=== PATIENT | male | born 1950 | race Caucasian/White ===

== ENCOUNTER 2018-01-16 09:35 | Inpatient (IN) | payer OTHER ==
[~2018-01-16] VITALS: Ht 188 cm; Wt 153.3 kg
--- NOTE | ~2018-01-16 | 2DMMODE ---
[facility] [address] [place] [address] 2 D/M-MODE ECHOCARDIOGRAM Name: LEE ROSSI Room #: 449-I ADM IN .R.#: [id number] Admission: 01/16/18 Attend Phys: Madi Bryant MD Discharge: Date of : 52 Date of Service: 01/20/18 1113 Report #: [id number] THIS REPORT FOR: //name// APPROVED REPORT Study performed: 01/20/2018 09:39:14 EXAM: Comprehensive 2D, Doppler, and color-flow Echocardiogram Patient Location: Echo lab Room #: [facility] Status: routine BSA: 2.72 HR: 82 bpm BP: 164/80 mmHg Rhythm: NSR Other Information Study Quality: Technically Limited Indications Chest Pain Echo Enhancing Agent Indication: Endocardial border delineation Agent(s) / Amount(s) Used: Optison 3 cc 2D Dimensions LVEF(%): 54.51 (>50%) IVSd: 11.49 (7-11mm) LVOT Diam: 24.46 (18-24mm) LVDd: 54.07 mm PWd: 11.44 (7-11mm) Ascending Ao: 39.42 (22-36mm) LVDs: 38.65 (25-40mm) Aortic Root: 33.88 mm Dubois's LVEF: 54.51 % Aortic Valve AoV Peak Bayron.: 1.29 m/s AO Peak Gr.: 6.68 mmHg LVOT Max P.23 mmHg LVOT Max V: 1.14 m/s ALEXSANDRA Vmax: 4.16 cm2 Mitral Valve E/A Ratio: 1.2 MV Decel. Time: 198.54 ms MV E Max Bayron.: 1.03 m/s [facility] [address] [place] [address] 2 D/M-MODE [facility]CHOCARDIOGRAM [facility] Room #: 449I [facility] IN ..#: [id number] Admission: 01/16/18 Attend Phys: Madi Bryant MD Discharge: Date of : 52 Date of Service: 01/20/18 1113 Report #: [id number] MV A Bayron.: 0.84 m/s MV PHT: 57.58 ms IVRT: 78.43 ms Pulmonary Valve PV Peak Bayron.: 1.11 m/s PV Peak Gr.: 4.94 mmHg Pulmonary Vein P Vein S: 0.37 m/s P Vein A: 0.28 m/s P Vein D: 0.34 m/s P Vein A Dur.: 96.9 msec P Vein S/D Ratio: 1.09 Left Ventricle The left ventricle is normal size. There is normal LV segmental wall motion. There is normal left ventricular wall thickness. The left ventricular systolic function is normal. The left ventricular ejection fraction is within the normal range. LVEF is 60-65%. The left ventricular diastolic function is normal. Right Ventricle The right ventricle is normal size. The right ventricular systolic function is normal. Atria The left atrium size is normal. The right atrium size is normal. Aortic Valve The aortic valve is normal in structure. No aortic regurgitation is present. There is no aortic valvular stenosis. Mitral Valve The mitral valve is normal in structure. Trace mitral regurgitation. No evidence of mitral valve stenosis. Tricuspid Valve The tricuspid valve is normal in structure. There is no tricuspid valve regurgitation noted. Pulmonic Valve The pulmonary valve is normal in structure. There is no pulmonic valvular regurgitation. Great Vessels The aortic root is normal in size. IVC is not well visualized. [address] [address] 2 D/M-MODE ECHOCARDIOGRAM Name: LEE ROSSI [facility] Room #: 449-I [facility] IN .R.#: [id number] Admission: 01/16/18 Attend Phys: Madi Bryant MD Discharge: Date of : 52 Date of Service: 01/20/18 1113 Report #: [id number] Pericardium There is no pericardial effusion. <Conclusion> Technically difficult study 1. Normal echocardiogram with Doppler. EF 60% 2. Pulmonary artery pressure could not be ascertained 3. No pericardial effusion <ELECTRONICALLY SIGNED> By: Philippe Law MD, [facility] 01/20/18 1113 1113 1113 Philippe Law MD, [facility] /INF
--- NOTE | ~2018-01-16 | P ---
[facility] [place] [address] PROCEDURE REPORT Name: LEE ROSSI Room #: 449-I [facility] IN M.R.#: [id number] Admission: 01/16/18 Attend Phys: Madi Bryant MD Discharge: 01/21/18 Date of : 52 Report #: [id number] THIS REPORT FOR: //name// CC: Madi Morse DATE OF SERVICE: 01/17/2018 PROCEDURE PERFORMED: Upper endoscopy with polypectomy and bleeding control. HISTORY OF PRESENT ILLNESS: The patient is a 67-year-old male with abdominal pain, was diagnosed with acute pancreatitis. His lipase is now improved, but he continues to have significant midepigastric abdominal pain. He does take Aleve on a regular basis. Plan is for EGD to rule out peptic ulcer disease or other abnormalities. DESCRIPTION OF PROCEDURE: The risks and benefits of the procedure were explained to the patient, those risks including but not limited to bleeding, perforation, the risk of sedation. He understood these risks and gave informed consent. Sedation was given using propofol per anesthesia. Next, using a standard Olympus upper endoscope, the scope was placed in the patient's mouth and advanced under direct vision through the esophagus, stomach and into the second portion of the duodenum. The upper and mid part of the esophagus were normal. In the distal esophagus, there was grade A erosive esophagitis. No evidence of bleeding. There were 2 polyps noted in the stomach, both of which were semi-pedunculated. The first I removed was in the mid body of the stomach. It was approximately 1 cm in size. After the polypectomy was performed by snare cautery, there was active bleeding. This was treated with epinephrine, 3 Endoclips and cautery. Eventually did stop bleeding. The second polyp was noted in the high cardia near the GE junction. Because of the location, I did not want to remove this by snare cautery today, instead would recommend have Dr. Reyna remove at the time of an endoscopic ultrasound; however, I did take biopsies of the polyp. The remaining stomach was normal. The pylorus was normal and patent. The duodenal bulb, first and second portion were all normal. The scope was then withdrawn and the procedure terminated. The patient tolerated the procedure well. IMPRESSION: 1. Two gastric polyps as described above. 2. Grade A erosive esophagitis. 3. Otherwise, normal upper endoscopy. RECOMMENDATIONS: 1. Await biopsy results. 2. Would recommend daily PPI therapy. [address] [address] PROCEDURE REPORT Name: FLOLEE Room #: 449-I [facility] IN [facility].#: [id number] Admission: 01/16/18 Attend Phys: Madi Bryant MD Discharge: 01/21/18 Date of : 52 Report #: [id number] 3. We will start the patient on clear liquids today. Thank you for allowing me to participate in his care. <ELECTRONICALLY SIGNED> By: Drake Davis MD 01/22/18 0845 1446 1918 Drake Davis MD /nt
--- NOTE | ~2018-01-16 | PATH ---
[facility] [place] [address] PATHOLOGY RPT PROCEDURE Name: LEE FAYE Room #: 449-I [facility] IN M.R.#: [id number] Admission: 01/16/18 Date of : 52 Discharge: 01/21/18 Report #: [id number] Path Case #: [id number] [facility] Accession Number: [id number] . 01 Material submitted: . PART A: GASTRIC POLYP PART B: GASTRIC CARDIA BIOPSY . 01 Clinical history: . Pre-Op DX: Abdominal pain Post-Op DX: Gastric polyp, esophagus . 02 Diagnosis: A. Polyp, gastric polyp, endoscopic biopsy: - Inflamed and ulcerated hyperplastic polyp. - Negative for dysplasia. - Inked margin showing unremarkable mucosa. . B. Gastric mucosa, gastric cardia, endoscopic biopsy: - Fragment comprised of ulceration and granulation tissue. - Negative for Helicobacter pylori (properly controlled immunohistochemical stain performed). . (IUV:mmnico; 01/20/18) [facility]/01/20/2018 . 02 Electronically signed: . Nyla Navarro MD, Pathologist NPI- [id number] . 01 Gross description: . A. Received in formalin labeled "Lee Faye, gastric polyp," is a 1.5 x 0.8 x 0.7 cm polypoid piece of mark soft tissue. The margin is inked and the specimen is sectioned perpendicular to the margin and entirely submitted in cassette A1. . B. Received in formalin labeled "Lee Faye, gastric cardia BX," is a single segment of mark soft tissue measuring 0.4 cm in maximum dimension. The specimen is entirely submitted in cassette B1. (TSD; 01/17/2018) TOB/TOB . 02 Pathologist provided ICD-10: K31.7, K25.9 . 02 CPT . 728764, 830844, L48192 [place] [address] PATHOLOGY RPT PROCEDURE Name: LEE FAYE Room #: 449-I [facility] IN .R.#: [id number] Admission: 01/16/18 Date of : 52 Discharge: 01/21/18 Report #: [id number] Path Case #: [id number] Performed at: 01 [facility] [place] [address] [facility] [address], [place], [place] [id number] MD Dawson Stock MD Phone: [phone] Performed at: [address] [id number] MD Nyla aNvarro MD Phone: [phone]
--- NOTE | ~2018-01-16 | EKG ---
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: JORGE A BOWEN : 1950 Requested By: Lety Barron Order Number: [id number] MD: Sahil [place] Measurements Intervals [place] Rate: 112 P: 58 TX: 179 QRS: 14 QRSD: 89 T: 33 QT: 316 QTc: 432 Interpretive Statements Sinus tachycardia Nonspecific T-wave abnormalities Compared to ECG 01/16/2018 09:41:48 Q waves now present Sinus rhythm no longer present Atrial premature complex(es) no longer present Electronically Signed On 01-18-2018 10:15:38 CDT by Sahil Bolivar [email or web address] <ELECTRONICALLY SIGNED> By: Sahil [place]iv[place] MD 01/18/18 1015 0250 9 Sahil Bolivar MD /MALIA
--- NOTE | ~2018-01-16 | EKG ---
[address] [employer] [place] [address] ELECTROCARDIOGRAM REPORT Name: LEE ROSSI Room #: 449-I ADM IN M.R.#: [id number] Admission: 01/16/18 Attend Phys: Madi Bryant MD Discharge: Date of : 52 Report #: [id number] THIS REPORT FOR: //name// [facility] Test Date: 2018-01-18 Test Time: 16:04:00 Pat Name: LEE ROSSI Department: Room: [facility] Gender: M Computer Network Support Specialist: RONNIE : 1950 Requested By: Madi Bryant Order Number: [id number] MD: Sahil [place] Measurements Intervals [place] Rate: 96 P: 62 IA: 162 QRS: 13 QRSD: 94 T: -30 QT: 358 QTc: 453 Interpretive Statements Sinus rhythm Borderline T abnormalities, inferior leads Compared to ECG 01/18/2018 02:50:23 T-wave abnormality now present Sinus tachycardia no longer present Electronically Signed On 01-19-2018 11:04:34 CDT by Sahil Bolivar [email or web address] <ELECTRONICALLY SIGNED> By: Sahil Boliv[place] MD 01/19/18 1104 1604 1604 Sahil Bolivar MD /MALIA
--- NOTE | ~2018-01-16 | HC ---
[facility] [place] [address] CONSULTATION Name: LEE ROSSI Room #: 449-I ADM IN .R.#: [id number] Admission: 01/16/18 Attend Phys: Madi Bryant MD Discharge: Date of : 52 Report #: [id number] THIS REPORT FOR: //name// CC: Madi Morse DATE OF SERVICE: 01/19/2018 INDICATION: Chest/abdominal pain. HISTORY OF PRESENT ILLNESS: This is a 67-year-old gentleman who was admitted several days ago with mid epigastric pain, radiating straight to the back area. The initial impression was pancreatitis, although there is no history of alcohol abuse. MRCP was negative. He did undergo an endoscopy, found to have gastric polyps. One of the polyps was removed and epinephrine was injected. Apparently, he had a severe reaction to epinephrine, resulting in severe abdominal pain and tachycardia. We are asked to evaluate the patient regarding underlying ischemic heart disease. There is no history of diabetes mellitus or hypertension. He does not smoke. He reports no episodes of chest pains or abdominal pain with exertion at home. He does have dyspnea on exertion, probably related to his weight. There is no history of PND, orthopnea, fever or diarrhea. PAST MEDICAL HISTORY: Denies diabetes, denies hypertension. ALLERGIES: None. MEDICATIONS: At home include aspirin once a day. SOCIAL HISTORY: Denies tobacco use. FAMILY HISTORY: Negative for premature CAD. REVIEW OF SYSTEMS: A full 10-point review of systems performed. Only the pertinent positives and negatives are described in the HPI. PHYSICAL EXAMINATION: VITAL SIGNS: Blood pressure is 134/76, heart rate 78 beats per minute. GENERAL APPEARANCE: An overweight male in no acute distress. HEENT: Normocephalic. Sclerae are anicteric. ENT: Oral mucosa moist. NECK: Supple. LUNGS: Clear to auscultation. CARDIAC: Regular rate and rhythm, S1, S2 positive. ABDOMEN: Soft, nontender. EXTREMITIES: No cyanosis, trace edema. [facility] [address] [address] CONSULTATION Name: LEE ROSSI Room #: [address] [place] [address] IN ..#: [id number] Admission: 01/16/18 Attend Phys: Madi Bryant MD Discharge: Date of : 52 Report #: [id number] NEUROLOGIC: Alert and oriented x 3 ECG reveals sinus rhythm, nonspecific ST segment abnormality. LABORATORY VALUES: Serial troponin levels are negative. ASSESSMENT AND PLAN: 1. Chest/epigastric pain, occurred in the setting of epinephrine injection undergoing an endoscopy. Probably a reaction to epinephrine. He does have risk factors and agree with undergoing an ischemic evaluation. 2. Abdominal pain, this is still persistent, I do not believe this is related to a cardiac etiology. It has improved, since his initial presentation several days ago. 3. Borderline hypertension, may be related to his abdominal pain. Continue to follow for now. 4. Edema, only trace amounts. Recommend a low-salt diet. <ELECTRONICALLY SIGNED> By: Sahil Bolivar MD 01/20/1805 08 2107 Sahil Bolivar MD /nt
--- NOTE | ~2018-01-16 | EKG ---
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: [facility] : 1950 Requested By: Svetlana Mclean Order Number: [id number] MD: Philippe Law Measurements Intervals [place] Rate: 92 P: 37 IN: 180 QRS: -3 QRSD: 91 T: 39 QT: 350 QTc: 433 Interpretive Statements Sinus rhythm Atrial premature complexes Compared to ECG 12/14/2013 03:31:01 Atrial premature complex(es) now present Electronically Signed On 01-17-2018 8:10:56 CDT by Philippe Law [email or web address] <ELECTRONICALLY SIGNED> By: Philippe Law MD, [facility] 08/09/01 809 0 0 Philippe Law MD, [facility] /EPI
[2018-01-16 09:35] VITALS: BP 182/97
[~2018-01-16 09:35] MED LIST: ASA81BEC PO; BACTRIM DS TAB1 EACH PO; COLACE100 MG PO; PERCOCET 7.5-31 EACH PO
[2018-01-16] MEDS ORDERED: CENTRUM SILVER1 EAC2 PO (09:48)
[2018-01-16 09:58] LABS: HEMATOCRIT 44.7 % (42.0-52.0); HEMOGLOBIN 15.3 gm/dL (14.0-18.0); MCH 30.2 pg (26.0-34.0); MCHC 34.1 g/dL (28.0-37.0); MCV 88.5 fL (80.0-100.0); RBC 5.05 mil/uL (4.50-6.00); RDW 13.5 % (10.5-14.5); WBC 12.3 thou/uL (4.0-11.0)
[2018-01-16 10:08] LABS: ANION GAP 6 mmol/L (7-16); BUN 14 mg/dL (7-18); CHLORIDE 100 mmol/L (98-107); CO2 28 mmol/L (21-32); GLUCOSE 110 mg/dL (74-106); POTASSIUM 4.4 mmol/L (3.5-5.1); SODIUM 134 mmol/L (136-145)
[2018-01-16 10:17] LABS: LIPASE 1244 U/L (73-393); SGOT 40 U/L (15-37); SGPT 53 U/L (30-65); TOTAL BILIRUBIN 0.7 mg/dL (<0.1-1.0); TOTAL PROTEIN 7.4 g/dL (6.4-8.2); TROPONIN-I <0.06 ng/mL (<0.06)
[2018-01-16 12:25] VITALS: BP 160/90
[2018-01-16 12:49] VITALS: BP 168/87
[2018-01-16 13:35] VITALS: BP 161/97
[2018-01-16 18:57] VITALS: BP 160/90
[2018-01-17 03:32] VITALS: BP 148/81
[2018-01-17 06:03] LABS: HEMATOCRIT 42.5 % (42.0-52.0); HEMOGLOBIN 14.4 gm/dL (14.0-18.0); MCH 30.3 pg (26.0-34.0); MCHC 33.9 g/dL (28.0-37.0); MCV 89.5 fL (80.0-100.0); RBC 4.75 mil/uL (4.50-6.00); RDW 13.9 % (10.5-14.5); WBC 13.3 thou/uL (4.0-11.0)
[2018-01-17 06:19] LABS: CHOLESTEROL 135 mg/dL (<200); HDL CHOLESTEROL 39 mg/dL (>40); LDL CHOLESTEROL 79 mg/dL (<100); LIPASE 454 U/L (73-393); TC:HDL 3.5 Ratio (Not establshd); TRIGLYCERIDE 88 mg/dL (<150); VLDL 18 mg/dL (<40)
[2018-01-17 06:23] LABS: ALBUMIN 3.6 g/dL (3.4-5.0); CALCIUM 8.4 mg/dL (8.5-10.1); CREATININE 0.9 mg/dL (0.7-1.3); DIRECT BILIRUBIN 0.2 mg/dL (<0.1-0.3); TOTAL BILIRUBIN 0.9 mg/dL (<0.1-1.0); TOTAL PROTEIN 7.1 g/dL (6.4-8.2)
[2018-01-17 06:29] LABS: SERUM ASSESSMENT Clear
[2018-01-17 08:59] VITALS: BP 140/85
[2018-01-17 18:08] VITALS: BP 153/80
[2018-01-17 19:26] VITALS: BP 152/81
[2018-01-18 04:45] VITALS: BP 158/79
[2018-01-18 05:21] LABS: HEMATOCRIT 40.1 % (42.0-52.0); HEMOGLOBIN 13.6 gm/dL (14.0-18.0); MCH 30.2 pg (26.0-34.0); MCHC 33.9 g/dL (28.0-37.0); MCV 89.1 fL (80.0-100.0); RBC 4.5 mil/uL (4.50-6.00); RDW 13.8 % (10.5-14.5); WBC 16.2 thou/uL (4.0-11.0)
[2018-01-18 06:23] LABS: URINE BLOOD NEGATIVE (Negative); URINE CLARITY CLEAR; URINE GLUCOSE-RANDOM* NEGATIVE (Negative); URINE KETONES 1+ (Negative); URINE LEUKOCYTES-REFLEX NEGATIVE (Negative); URINE NITRITE-REFLEX NEGATIVE (Negative); URINE PROTEIN (DIPSTICK) TRACE (Negative); URINE SPECIFIC GRAVITY >= 1.030 (1.005-1.035); URINE UROBILINOGEN 0.2 E.U./dl (0.2-1.0)
[2018-01-18 06:27] LABS: URINE COLOR DK YELLOW
[2018-01-18 06:28] LABS: ICTOTEST (BILI CONFIRMATORY) Negative (Negative); URINE BILIRUBIN NEGATIVE (Negative)
[2018-01-18 07:28] VITALS: BP 118/72
[2018-01-18 17:00] VITALS: BP 135/59
[2018-01-18 19:16] VITALS: BP 130/64
[2018-01-19 04:27] VITALS: BP 152/72
[2018-01-19 07:32] VITALS: BP 134/76
[2018-01-19 17:55] VITALS: BP 148/77
[2018-01-19 19:13] VITALS: BP 148/71
[2018-01-20 03:41] VITALS: BP 151/75
[2018-01-20 07:15] VITALS: BP 164/80
[2018-01-20 16:15] VITALS: BP 165/82
[2018-01-20 19:00] VITALS: BP 166/80
[2018-01-21 04:32] VITALS: BP 163/87
[2018-01-21 07:16] VITALS: BP 162/96
[2018-01-21] MEDS ORDERED: PROTONIX40 M1 PO (11:29)
[2018-01-21 11:42] VITALS: BP 162/96
[2018-01-21] MEDS ORDERED: NORCO 5-325 TA1 EACH PO (12:10)
[2018-01-21 20:06] LABS: IgG 530 mg/dL (700-1600)
== END 2018-01-21 12:50 | disposition home or self-care (01) | DRG 439 ==
LOC: ER 09:35 → 4W 12:27 → EROBS 12:27 → 4W 13:13
PROVIDERS: Hospitalist; Nurse Practitioner; Nurse Practitioner Acute Care; Specialist; Student in an Organized Health Care Education/Training Program
PROC: 0DB68ZX Excision of Stomach, Via Natural or Artificial Opening Endoscopic, Diagnostic (ICD-10-PCS; principal; 2018-01-17)
PROC: 0DB68ZZ Excision of Stomach, Via Natural or Artificial Opening Endoscopic (ICD-10-PCS; principal; 2018-01-17)
PROC: 3E0G8GC Introduction of Other Therapeutic Substance into Upper GI, Via Natural or Artificial Opening Endoscopic (ICD-10-PCS; principal; 2018-01-17)
PROC: 0W3P8ZZ Control Bleeding in Gastrointestinal Tract, Via Natural or Artificial Opening Endoscopic (ICD-10-PCS; principal; 2018-01-17)
DX: K85.90 Acute pancreatitis without necrosis or infection, unspecified (principal); K22.10 Ulcer of esophagus without bleeding; Z68.41 Body mass index [BMI] 40.0-44.9, adult; Z96.652 Presence of left artificial knee joint; F17.210 Nicotine dependence, cigarettes, uncomplicated; E66.9 Obesity, unspecified; K31.7 Polyp of stomach and duodenum; K57.90 Diverticulosis of intestine, part unspecified, without perforation or abscess without bleeding; D72.829 Elevated white blood cell count, unspecified; K76.0 Fatty (change of) liver, not elsewhere classified; I10 Essential (primary) hypertension; Z90.49 Acquired absence of other specified parts of digestive tract; Z79.899 Other long term (current) drug therapy; Z79.82 Long term (current) use of aspirin; K80.50 Calculus of bile duct without cholangitis or cholecystitis without obstruction
CPT/HCPCS: 10040; 62110; 62900; 70005

== ENCOUNTER 2021-01-31 22:00 | Inpatient (IN) | payer OTHER ==
[~2021-01-31] VITALS: Ht 188 cm; Wt 136.1 kg
[~2021-01-31 22:00] MED LIST changes: +CENTRUM SILVER1 EAC2 PO; +NORCO 5-325 TA1 EACH PO; +PROTONIX40 M1 PO
[2021-01-31 22:06] VITALS: BP 143/63
[2021-01-31 23:16] LABS: ABSOLUTE NEUTROPHILS 8.2 thou/uL (1.4-8.2); BASOPHILS 0.2 % (0.0-2.0); EOSINOPHILS 4.5 % (0.0-3.0); HEMATOCRIT 39.1 % (42.0-52.0); HEMOGLOBIN 13.1 gm/dL (14.0-18.0); LYMPHOCYTES 6.8 % (24.0-44.0); MCH 29.5 pg (26.0-34.0); MCHC 33.4 g/dL (28.0-37.0); MCV 88.1 fL (80.0-100.0); MONOCYTES 13.5 % (1.0-8.0); PLATELET COUNT 335 thou/uL (150-400); RBC 4.44 mil/uL (4.50-6.00); RDW 13.8 % (10.5-14.5); WBC 10.9 thou/uL (4.0-11.0)
[2021-01-31 23:32] LABS: ANION GAP 9 mmol/L (7-16); BUN 13 mg/dL (7-18); CHLORIDE 99 mmol/L (98-107); CO2 28 mmol/L (21-32); GLUCOSE 126 mg/dL (74-106); POTASSIUM 3.4 mmol/L (3.5-5.1); SODIUM 136 mmol/L (136-145)
[2021-01-31 23:42] LABS: ALBUMIN 2.4 g/dL (3.4-5.0); SGOT 26 U/L (15-37); SGPT 33 U/L (30-65); TOTAL BILIRUBIN 0.5 mg/dL (0.2-1.0); TOTAL PROTEIN 7.1 g/dL (6.4-8.2); TROPONIN-I <0.06 ng/mL (<0.06)
[2021-02-01 03:42] VITALS: BP 160/89; BP 191/122
[2021-02-01] MEDS ORDERED: LISINOPRIL-HCT1 EACH PO (03:46)
--- NOTE | 2021-02-01 07:48 | EKG ---
[address] [address] ELECTROCARDIOGRAM REPORT Name: LEE ROSSI Room #: 170-7 ADM IN M.R.#: [id number] Admission: 01/31/21 Attend Phys: Madi Bryant MD Discharge: Date of : 52 Report #: [id number] [facility] ED Test Date: 2021-02-01 Test Time: 06:05:41 Pat Name: LEE ROSSI Department: Room: 170 7 Gender: M Criminal Justice Faculty: maurice morrison : 1950 Requested By: Parul Osullivan Order Number: [id number] MD: Rito Hernandez Measurements Intervals [place] Rate: 120 P: AL: QRS: 12 QRSD: 89 T: 88 QT: 327 QTc: 462 Interpretive Statements Atrial fibrillation Borderline repolarization abnormality Baseline wander in lead(s) III,aVL,V5,V6 Compared to ECG 01/31/2021 22:35:02 Sinus tachycardia no longer present Atrial premature complex(es) no longer present Electronically Signed On 02-01-2021 7:48:41 CDT by Rito Hernandez [email or web address] <ELECTRONICALLY SIGNED> By: Rito Hernandez MD, FAC 02/01/21 0748 Rito Hernandez MD, [facility] /EPI
--- NOTE | 2021-02-01 07:48 | EKG ---
[address] [place] [employer] [place] [address] ELECTROCARDIOGRAM REPORT Name: LEE ROSSI Room #: 170-7 ADM IN M.R.#: [id number] Admission: 01/31/21 Attend Phys: Madi Bryant MD Discharge: Date of : 52 Report #: [id number] [facility] ED Test Date: 2021-01-31 Test Time: 22:35:02 Pat Name: LEE ROSSI Department: Room: 170 Gender: M Community Marketing Coordinator: maurice morrison : 1950 Requested By: Blu Guerrero Order Number: [id number] MD: Rito Hernandez Measurements Intervals [place] Rate: 107 P: 50 RI: 174 QRS: 4 QRSD: 91 T: 68 QT: 359 QTc: 479 Interpretive Statements Sinus tachycardia Atrial premature complex Abnormal R-wave progression, late transition Borderline prolonged QT interval Compared to ECG 01/18/2018 16:04:00 Atrial premature complex(es) now present Sinus rhythm no longer present T-wave abnormality no longer present Electronically Signed On 02-01-2021 7:48:32 CDT by Rito Hernandez [email or web address] <ELECTRONICALLY SIGNED> By: Rito Hernandez MD, FAC 02/01/21 0748 Rito Hernandez MD, [facility] /EPI
--- NOTE | 2021-02-01 16:16 | 2DMMODE ---
[facility] [place] [address] 2 D/M-MODE ECHOCARDIOGRAM Name: LEE ROSSI Room #: 170-7 ADM IN M.R.#: [id number] Admission: 01/31/21 Attend Phys: Kristen Chowdary MD Discharge: Date of : 52 Report #: [id number] THIS REPORT FOR: cc: Blu Morse David J. DO Park, Jin S. MD ~ APPROVED REPORT Study performed: 02/01/2021 14:59:03 EXAM: Comprehensive 2D, Doppler, and color-flow Echocardiogram Patient Location: ER/OBS Room #: 3 Status: routine BSA: 2.11 HR: 75 bpm BP: 131/75 mmHg Rhythm: NSR Other Information Study Quality: Good Risk Factors: Cardiac Risk Factors: SOB Indications Dyspnea Elevated BNP 2D Dimensions IVSd: 12.72 (7-11mm) LVOT Diam: 21.24 (18-24mm) LVDd: 33.92 mm PWd: 15.34 (7-11mm) Ascending Ao: 32.34 (22-36mm) LVDs: 21.66 (25-40mm) Left Atrium: 21.17 (27-40mm) Aortic Root: 34.79 mm Volumes Left Atrial Volume (Systole) Single Plane 4CH: 10.02 mL Single Plane 2CH: 17.07 mL Biplane LA Volume: 17.00 mL LA ESV Index: 7.00 mL/m2 Aortic Valve AoV Peak Bayron.: 1.34 m/s [facility] [place] [address] 2 D/M-MODE ECHOCARDIOGRAM Name: LEE ROSSI Room #: 1707 ADM IN M.R.#: [id number] Admission: 01/31/21 Attend Phys: Kristen Chowdary MD Discharge: Date of : 52 Report #: [id number] AO Peak Gr.: 7.18 mmHg LVOT Max P.15 mmHg LVOT Max V: 1.02 m/s ALEXSANDRA Vmax: 2.69 cm2 Mitral Valve E/A Ratio: 0.6 MV Decel. Time: 279.83 ms MV E Max Bayron.: 0.47 m/s MV A Bayron.: 0.76 m/s MV PHT: 81.15 ms Pulmonary Valve PV Peak Bayron.: 0.63 m/s PV Peak Gr.: 1.58 mmHg Pulmonary Vein P Vein S: 0.49 m/s P Vein A: 0.24 m/s P Vein D: 0.22 m/s P Vein A Dur.: 138.4 msec P Vein S/D Ratio: 2.23 Tricuspid Valve TR Peak Bayron.: 4.38 m/s RAP Estimate: 7.00 mmHg TR Peak Gr.: 76.72 mmHg RVSP: 83.00 mmHg Left Ventricle The left ventricle is normal size. There is normal LV segmental wall motion. Mild concentric left ventricular hypertrophy. Left ventricular systolic function is normal. The left ventricular ejection fraction is within the normal range. LVEF is 55-60%. Transmitral Doppler flow pattern suggests impaired LV relaxation. Right Ventricle The right ventricle is normal size. The right ventricular systolic function is normal. Atria The left atrium size is normal. The right atrium size is normal. Aortic Valve The aortic valve is normal in structure. No aortic regurgitation is present. There is no aortic valvular stenosis. Mitral Valve The mitral valve is normal in structure. Mild mitral regurgitation. No evidence of mitral valve stenosis. [facility] [address] [address] 2 D/M-MODE ECHOCARDIOGRAM Name: LEE ROSSI Room #: 170-7 ADM IN .R.#: [id number] Admission: 01/31/21 Attend Phys: Kristen Chowdary MD Discharge: Date of : 52 Report #: [id number] Tricuspid Valve The tricuspid valve is normal in structure. Mild to moderate tricuspid regurgitation PAP - 70-75 mmHg. Pulmonic Valve The pulmonary valve is normal in structure. There is no pulmonic valvular regurgitation. Great Vessels The aortic root is normal in size. IVC is normal in size and collapses >50% with inspiration. Pericardium There is no pericardial effusion. There is no pleural effusion. <Conclusion> The left ventricle is normal size. Mild concentric left ventricular hypertrophy. Left ventricular systolic function is normal. Transmitral Doppler flow pattern suggests impaired LV relaxation. The right ventricle is normal size. The left atrium size is normal. The aortic valve is normal in structure. Mild mitral regurgitation. Mild to moderate tricuspid regurgitation PAP - 70-75 mmHg. <ELECTRONICALLY SIGNED> By: Sahil Bolivar MD 02/01/21 1615 1615 1615 Sahil Bolivar MD /INF
[2021-02-01 20:00] VITALS: BP 128/80
[2021-02-02 03:14] LABS: HEMATOCRIT 39.8 % (42.0-52.0); HEMOGLOBIN 13.2 gm/dL (14.0-18.0); MCH 29.7 pg (26.0-34.0); MCHC 33.1 g/dL (28.0-37.0); MCV 89.9 fL (80.0-100.0); RBC 4.42 mil/uL (4.50-6.00); RDW 13.8 % (10.5-14.5); WBC 13.5 thou/uL (4.0-11.0)
[2021-02-02 03:31] LABS: ALBUMIN 2.3 g/dL (3.4-5.0); ANION GAP 14 mmol/L (7-16); BUN 22 mg/dL (7-18); CALCIUM 8.1 mg/dL (8.5-10.1); CHLORIDE 100 mmol/L (98-107); CO2 26 mmol/L (21-32); DIRECT BILIRUBIN < 0.1 mg/dL (<0.1-0.2); GLUCOSE 180 mg/dL (74-106); PHOSPHORUS 2.7 mg/dL (2.6-4.7); POTASSIUM 4.1 mmol/L (3.5-5.1); SGOT 28 U/L (15-37); SGPT 31 U/L (16-63); SODIUM 140 mmol/L (136-145); TOTAL BILIRUBIN 0.2 mg/dL (0.2-1.0); TOTAL PROTEIN 6.2 g/dL (6.4-8.2)
[2021-02-02 06:00] VITALS: BP 123/78
[2021-02-02 07:45] VITALS: BP 123/78
[2021-02-02 08:12] VITALS: BP 126/86
[2021-02-02 09:57] LABS: CHOLESTEROL 157 mg/dL (<200); HDL CHOLESTEROL 29 mg/dL (>40); LDL CHOLESTEROL 104 mg/dL (<100); TC:HDL 5.4 Ratio (Not establshd); TRIGLYCERIDE 120 mg/dL (<150); VLDL 24 mg/dL (<40)
--- NOTE | 2021-02-02 10:34 | HC ---
[facility] [place] [address] CONSULTATION Name: LEE ROSSI Room #: 352- ADM IN M.R.#: [id number] Admission: 01/31/21 Attend Phys: Kristen Chowdary MD Discharge: Date of : 52 Report #: [id number] THIS REPORT FOR: cc: Blu Morse David J. DO Barry, Joseph W. MD ~ DATE OF SERVICE: 02/01/2021 INFECTIOUS DISEASE CONSULTATION ATTENDING PHYSICIAN: Dr. Chowdary. REASON FOR EVALUATION: COVID-19 infection, complicated by pneumonitis and respiratory failure. HISTORY OF PRESENT ILLNESS: Chart reviewed and the patient examined. This is a 70-year-old gentleman without significant medical history of a chronic nature, who apparently has been ill for roughly 2 weeks. He noted more severe illness over the last 48-72 hours, had progressive dyspnea, cough that has been productive, unclear if he has had any fevers. He noted he is generally feeling better at this point, presumably secondary to receiving oxygen therapy and perhaps hydration. His initial chest x-ray showed bilateral interstitial issues. Coronavirus-19 ____ now is negative; however, the PCR was positive. He notes his spouse has been diagnosed as well. Lactic acid was 1.4. Blood cultures sterile thus far. Echo was otherwise unremarkable with exception of elevated pulmonary arterial pressures. He was found to be febrile on this admission. Otherwise, relatively hemodynamically stable. He is empirically started on therapy with ceftriaxone, azithromycin, methylprednisolone, remdesivir, ivermectin and vitamins. ALLERGIES: Listed to EPINEPHRINE. CURRENT MEDICATIONS: Include zinc, cholecalciferol, thiamine, ceftriaxone, azithromycin, enoxaparin, ascorbic acid, ipratropium, albuterol inhaler, methylprednisolone, famotidine, budesonide, guaifenesin, ondansetron, remdesivir, ivermectin. PAST MEDICAL HISTORY: History of pancreatitis, knee replacement, history of appendectomy, cholecystectomy, cataract surgery, vein stripping. SOCIAL HISTORY: Former smoker, occasional ethanol, no illicit drug use. FAMILY HISTORY: Noncontributory. REVIEW OF SYSTEMS: Otherwise, unremarkable. [facility] [address] [place] [address] CONSULTATION Name: LEE ROSSI Room #: 352-P [facility] IN M.R.#: [id number] Admission: 01/31/21 Attend Phys: Kristen Chowdary MD Discharge: Date of : 52 Report #: [id number] PHYSICAL EXAMINATION: GENERAL: He is a quite alert, animated, some [id number] distress. He is apparently sufficiently nourished. He is lucid. VITAL SIGNS: T-max 102.1, pulse 93, respirations 24, blood pressure 147/80. SKIN: Warm, dry, no rashes. HEENT: Normocephalic. Extraocular muscles intact. Has high-flow oxygen per nasal cannula in place. NECK: Supple. LUNGS: Bilateral scattered coarse breath sounds. HEART: Borderline tachycardic, regular. I do not appreciate a murmur. ABDOMEN: Soft and is distended, is nontender. No peritoneal signs. GENITOURINARY AND RECTAL: Deferred. LABORATORY DATA: Lactic acid 1.4. Electrolytes: Sodium 136, potassium 3.4, chloride 99, bicarbonate 28, anion gap of 9. BUN and creatinine 13 and 1.0. Glucose of 126. AST of 26, ALT of 33. Albumin 2.4, total protein 7.1. Estimated GFR of 74. CBC: White count of 10.9, H and H 13.1 and 39.1, platelets of 335. ASSESSMENT AND PLAN: Coronavirus infection, complicated by pneumonitis, respiratory failure. He is quite tenuous at this point. He has been given a combination therapy directed against coronavirus, which is reasonable. I talked to the pharmacy. Add Actemra as well. In addition to that, we will treat empirically, received ceftriaxone and azithromycin. We will try to collect sputum sample with additional diagnostic testing. He remains tenuous. Continue to monitor expectantly. May need increasing support. <ELECTRONICALLY SIGNED> By: Graeme Qureshi MD 02/02/21 [id number] Graeme Qureshi MD /nt
[2021-02-02 11:13] VITALS: BP 118/96
[2021-02-02 17:37] VITALS: BP 128/101
[2021-02-02 19:25] VITALS: BP 144/103
[2021-02-03 04:17] VITALS: BP 139/84
[2021-02-03 04:30] LABS: HEMATOCRIT 37.6 % (42.0-52.0); HEMOGLOBIN 12.4 gm/dL (14.0-18.0); MCV 87.9 fL (80.0-100.0); RBC 4.28 mil/uL (4.50-6.00); RDW 13.6 % (10.5-14.5); WBC 15.2 thou/uL (4.0-11.0)
[2021-02-03 04:58] LABS: ALBUMIN 2.3 g/dL (3.4-5.0); ANION GAP 12 mmol/L (7-16); BUN 29 mg/dL (7-18); CALCIUM 8.5 mg/dL (8.5-10.1); CHLORIDE 102 mmol/L (98-107); CO2 30 mmol/L (21-32); CREATININE 1.1 mg/dL (0.7-1.3); DIRECT BILIRUBIN < 0.1 mg/dL (<0.1-0.2); GLUCOSE 171 mg/dL (74-106); PHOSPHORUS 3.9 mg/dL (2.6-4.7); POTASSIUM 4.1 mmol/L (3.5-5.1); SGOT 21 U/L (15-37); SGPT 33 U/L (16-63); SODIUM 144 mmol/L (136-145); TOTAL BILIRUBIN 0.2 mg/dL (0.2-1.0); TOTAL PROTEIN 6.3 g/dL (6.4-8.2)
[2021-02-03 07:16] VITALS: BP 154/92
[2021-02-03 11:26] VITALS: BP 132/78
[2021-02-03 15:56] VITALS: BP 126/83
[2021-02-03 19:44] VITALS: BP 141/88
[2021-02-04 04:54] VITALS: BP 127/80
[2021-02-04 05:31] LABS: ALBUMIN 2.3 g/dL (3.4-5.0); ANION GAP 5 mmol/L (7-16); BUN 27 mg/dL (7-18); CHLORIDE 104 mmol/L (98-107); CO2 32 mmol/L (21-32); CREATININE 0.9 mg/dL (0.7-1.3); DIRECT BILIRUBIN < 0.1 mg/dL (<0.1-0.2); GLUCOSE 168 mg/dL (74-106); PHOSPHORUS 3.5 mg/dL (2.5-4.9); POTASSIUM 4.6 mmol/L (3.5-5.1); SGOT 18 U/L (15-37); SGPT 34 U/L (30-65); SODIUM 141 mmol/L (136-145); TOTAL BILIRUBIN 0.2 mg/dL (0.2-1.0); TOTAL PROTEIN 6.2 g/dL (6.4-8.2)
[2021-02-04 07:31] VITALS: BP 119/68
[2021-02-04 08:23] VITALS: BP 139/78
[2021-02-04 11:29] VITALS: BP 124/74
[2021-02-04 15:15] VITALS: BP 123/74
[2021-02-04 19:27] VITALS: BP 133/86
[2021-02-05 04:36] VITALS: BP 169/91
[2021-02-05 07:48] VITALS: BP 141/81
[2021-02-05 11:21] VITALS: BP 146/82
[2021-02-05 15:19] VITALS: BP 154/86
[2021-02-05 20:00] VITALS: BP 139/57
[2021-02-06 03:40] VITALS: BP 127/88
[2021-02-06 05:25] LABS: HEMATOCRIT 39.9 % (42.0-52.0); HEMOGLOBIN 13.1 gm/dL (14.0-18.0); MCHC 32.9 g/dL (28.0-37.0); PLATELET COUNT 405 thou/uL (150-400); RBC 4.53 mil/uL (4.50-6.00); RDW 13.6 % (10.5-14.5); WBC 12.4 thou/uL (4.0-11.0)
[2021-02-06 05:52] LABS: ALBUMIN 2.5 g/dL (3.4-5.0); CALCIUM 8.4 mg/dL (8.5-10.1); POTASSIUM 4.6 mmol/L (3.5-5.1); TOTAL BILIRUBIN 0.3 mg/dL (0.2-1.0); TOTAL PROTEIN 6.1 g/dL (6.4-8.2)
[2021-02-06 06:15] LABS: ABSOLUTE NEUTROPHILS 9.5 thou/uL (1.4-8.2); METAMYELOCYTES 2 %; MYELOCYTES 2 %
[2021-02-06 06:16] LABS: LARGE PLATELETS OCCASIONAL
[2021-02-06 07:14] VITALS: BP 138/83
[2021-02-06 11:16] VITALS: BP 146/83
[2021-02-06 15:10] VITALS: BP 133/74
--- NOTE | 2021-02-06 16:34 | 2DMMODE ---
[facility] [place] [address] 2 D/M-MODE ECHOCARDIOGRAM Name: LEE ROSSI Room #: 352-P ADM IN M.R.#: [id number] Admission: 01/31/21 Attend Phys: Kristen Chowdary MD Discharge: Date of : 52 Report #: [id number] THIS REPORT FOR: cc: Blu Morse David J. DO Santiago, Patrick MD [facility] ~ APPROVED REPORT Study performed: 02/06/2021 10:19:56 EXAM: Limited 2D, Doppler, and color-flow Echocardiogram Patient Location: Bedside Room #: [facility] Status: routine BSA: 2.58 HR: 71 bpm BP: 138/83 mmHg Rhythm: NSR Other Information Study Quality: Fair Technically limited study due to morbid obesity. Indications Afib, COVID-19 + Hx: HTN. Aortic Valve AoV Peak Bayron.: 1.03 m/s AO Peak Gr.: 4.20 mmHg Mitral Valve E/A Ratio: 0.8 MV Decel. Time: 250.21 ms MV E Max Bayron.: 0.71 m/s MV A Bayron.: 0.92 m/s MV PHT: 72.56 ms Pulmonary Valve PV Peak Bayron.: 1.28 m/s PV Peak Gr.: 6.51 mmHg Tricuspid Valve RAP Estimate: 5.00 mmHg Left Ventricle [facility] [address] [place] [address] 2 D/M-MODE ECHOCARDIOGRAM Name: LEE ROSSI Room #: 352-P ADM IN M.R.#: [id number] Admission: 01/31/21 Attend Phys: Kristen Chowdary MD Discharge: Date of : 52 Report #: [id number] The left ventricle is normal size. LV wall motion appears grossly normal. Mild concentric left ventricular hypertrophy. Left ventricular systolic function is normal. LVEF is 55-60%. Mild diastolic dysfunction is present (impaired relaxation pattern). Right Ventricle Right heat appears grossly normal in size and function. Atria Left atrium appears mildly dilated. The right atrium size is normal. Aortic Valve The aortic valve is normal in structure. No aortic regurgitation is present. There is no aortic valvular stenosis. Mitral Valve The mitral valve is normal in structure. Trace mitral regurgitation. No evidence of mitral valve stenosis. Tricuspid Valve The tricuspid valve is normal in structure. There is no tricuspid valve regurgitation noted. Unable to assess PA pressure. Pulmonic Valve Pulmonic valve is not well visualized. Mild pulmonic regurgitation. Great Vessels IVC is normal in size and collapses >50% with inspiration. Pericardium There is no pericardial effusion. <Conclusion> Normal left ventricular size with mild concentric hypertrophy Ejection fraction 55-60% Grade 1 diastolic dysfunction Normal right ventricular size/function Left atrium mildly dilated Color-flow Doppler study was performed of the aortic/mitral/tricuspid/pulmonary valve Normal aortic/mitral valve structure and function. [facility] [address] [place] [address] 2 D/M-MODE ECHOCARDIOGRAM Name: LEE ROSSI Room #: 352-P ADM IN M.R.#: [id number] Admission: 01/31/21 Attend Phys: Kristen Chowdary MD Discharge: Date of : 52 Report #: [id number] No tricuspid valve insufficiency No pericardial effusion Normal aortic root size. <ELECTRONICALLY SIGNED> By: Rito Hernandez MD, FACC 02/06/21 [id number] Rito Hernandez MD, FACC /INF
[2021-02-06 19:31] VITALS: BP 130/74
[2021-02-07 04:08] VITALS: BP 135/83
[2021-02-07 07:31] VITALS: BP 147/83
[2021-02-07 11:15] VITALS: BP 151/85
[2021-02-07 15:00] VITALS: BP 139/88
[2021-02-07 19:36] VITALS: BP 141/71
[2021-02-08 04:07] VITALS: BP 140/86
[2021-02-08 07:25] VITALS: BP 134/80
[2021-02-08 11:03] VITALS: BP 127/73
[2021-02-08] MEDS ORDERED: VITAMIN D325 MC2 PO (13:07)
[2021-02-08] MEDS ORDERED: PEPCID20 MG PO (13:07)
[2021-02-08] MEDS ORDERED: DILTIAZEM 24HR180 M1 PO (13:07)
[2021-02-08] MEDS ORDERED: VITAMIN B-1100 M2 PO (13:07)
[2021-02-08] MEDS ORDERED: COMBIVENT RESPIM4 GM INH (13:07)
[2021-02-08] MEDS ORDERED: ZINC SULFATE50 MG PO (13:07)
[2021-02-08] MEDS ORDERED: MELATONIN5 M1 PO (13:07)
[2021-02-08] MEDS ORDERED: PULMICORT0.5 MG/21 INH (13:07)
[2021-02-08] MEDS ORDERED: ACEROLA C500 MG PO (13:07)
[2021-02-08] MEDS ORDERED: ELIQUIS5 MG PO (13:07)
[2021-02-08] MEDS ORDERED: CEFDINIR300 MG PO (13:07)
[2021-02-08 13:41] VITALS: BP 127/73
== END 2021-02-08 15:12 | disposition home or self-care (01) | DRG 871 ==
LOC: ER 22:00 → EROBS 23:57 → 3W 23:57 → EROBS 02-01 00:29 → 3W 02-02 07:36
PROVIDERS: Emergency Medicine; Hospitalist; Specialist; ADMIT Internal Medicine; ATTEND Internal Medicine
PROC: XW033E5 Introduction of Remdesivir Anti-infective into Peripheral Vein, Percutaneous Approach, New Technology Group 5 (ICD-10-PCS; principal; 2021-02-01)
PROC: 5A0945A Assistance with Respiratory Ventilation, 24-96 Consecutive Hours, High Flow/Velocity Cannula (ICD-10-PCS; principal; 2021-02-01)
PROC: XW033H5 Introduction of Tocilizumab into Peripheral Vein, Percutaneous Approach, New Technology Group 5 (ICD-10-PCS; principal; 2021-02-01)
PROC: 5A0935A Assistance with Respiratory Ventilation, Less than 24 Consecutive Hours, High Flow/Velocity Cannula (ICD-10-PCS; 2021-02-05)
PROC: 5A0935A Assistance with Respiratory Ventilation, Less than 24 Consecutive Hours, High Flow/Velocity Cannula (ICD-10-PCS; 2021-02-06)
PROC: 5A0935A Assistance with Respiratory Ventilation, Less than 24 Consecutive Hours, High Flow/Velocity Cannula (ICD-10-PCS; 2021-02-07)
DX: A41.9 Sepsis, unspecified organism (principal); U07.1 COVID-19; J12.82 Pneumonia due to coronavirus disease 2019; J96.01 Acute respiratory failure with hypoxia; Z94.0 Kidney transplant status; I48.91 Unspecified atrial fibrillation; Z96.652 Presence of left artificial knee joint; E66.9 Obesity, unspecified; I10 Essential (primary) hypertension; Z79.01 Long term (current) use of anticoagulants; Z90.49 Acquired absence of other specified parts of digestive tract; Z98.41 Cataract extraction status, right eye; Z88.8 Allergy status to other drugs, medicaments and biological substances; Z87.891 Personal history of nicotine dependence; Z68.38 Body mass index [BMI] 38.0-38.9, adult
CPT/HCPCS: 10879

== ENCOUNTER → 2021-03-07 | Outpatient (CLI) | payer OTHER ==
[~2021-03-07] MED LIST changes: +ACEROLA C500 MG PO; +CEFDINIR300 MG PO; +COMBIVENT RESPIM4 GM INH; +DILTIAZEM 24HR180 M1 PO; +ELIQUIS5 MG PO; +LISINOPRIL-HCT1 EACH PO; +MELATONIN5 M1 PO; +PEPCID20 MG PO; +PULMICORT0.5 MG/21 INH; +VITAMIN B-1100 M2 PO; +VITAMIN D325 MC2 PO; +ZINC SULFATE50 MG PO
== END ==
LOC: SJCVCIMAG 08:47
PROVIDERS: ATTEND Internal Medicine Cardiovascular Disease
DX: U07.1 COVID-19 (principal); R00.0 Tachycardia, unspecified; I48.0 Paroxysmal atrial fibrillation; R06.00 Dyspnea, unspecified; I10 Essential (primary) hypertension; E78.5 Hyperlipidemia, unspecified; E66.9 Obesity, unspecified; Z79.899 Other long term (current) drug therapy; Z87.891 Personal history of nicotine dependence; Z88.8 Allergy status to other drugs, medicaments and biological substances